=== PATIENT | female | born 1950 ===

== ENCOUNTER 2017-01-25 08:59 | Emergency (ER) | payer OTHER ==
[2017-01-25 09:07] VITALS: BMI 22.6
[2017-01-25 09:12] VITALS: O2SAT 98
[2017-01-25] MEDS ORDERED: Sodium Chloride 0.9% 1,000 ML IV STA (09:38)
--- NOTE | 2017-01-25 10:03 | ED PDOC ---
HPI: Abdomen Time Seen by Provider: 01/25/17 09:14 Chief Complaint (Nursing): Abdominal Pain Chief Complaint (Provider): abdominal pain History Per: Patient History/Exam Limitations: no limitations Onset/Duration Of Symptoms: Days (x 3) Additional Complaint(s): Myra Cervantes is a 67 year old female, with a previous medical history of diverticulitis, who presents to the ED with complaints of left lower quadrant pain ongoing for 3 days associated with urinary frequency. She denies any dysuria, fever, vomiting or diarrhea. Patient reports she is currently visiting from [place] where she is followed up by her doctors there. She denies taking any medications prior to arrival. PMD: none provided Past Medical History Reviewed: Historical Data, Nursing Documentation, Vital Signs Vital Signs: Last Vital Signs Temp 98.6 F 01/25/17 09:05 Pulse 75 01/25/17 10:02 Resp 17 01/25/17 10:02 BP 128/70 01/25/17 10:02 Pulse Ox 98 01/25/17 12:33 - Medical History PMH: Depression, Diverticulitis, Rheumatoid Arthritis - Surgical History Other surgeries: hysterectomy - Family History Family History: States: Unknown Family Hx - Home Medications Home Medications: Ambulatory Orders Medication Instructions Recorded Ciprofloxacin HCl [Cipro] 500 mg PO BID #14 tablet 01/25/17 Metronidazole [Flagyl] 500 mg PO BID #14 tablet 01/25/17 traMADol [Ultram] 50 mg PO TID PRN #15 tab 01/25/17 - Allergies Allergies/Adverse Reactions: Allergies Allergy/AdvReac Type Severity Reaction Status Date / Time No Known Allergies Allergy Verified 01/25/17 09:10 Review of Systems ROS Statement: Except As Marked, All Systems Reviewed And Found Negative Constitutional: Negative for: Fever Gastrointestinal: Positive for: Abdominal Pain (LLQ). Negative for: Nausea, Vomiting, Diarrhea Genitourinary Female: Positive for: Frequency. Negative for: Dysuria Physical Exam - Reviewed Nursing Documentation Reviewed: Yes Vital Signs Reviewed: Yes - Physical Exam Appears: Positive for: Well, Non-toxic, No Acute Distress Head Exam: Positive for: ATRAUMATIC, NORMAL INSPECTION, NORMOCEPHALIC Skin: Positive for: Normal Color, Warm, Dry Eye Exam: Positive for: EOMI, Normal appearance, PERRL ENT: Positive for: Normal ENT Inspection Neck: Positive for: Normal, Painless ROM Cardiovascular/Chest: Positive for: Regular Rate, Rhythm Respiratory: Positive for: CNT, Normal Breath Sounds Gastrointestinal/Abdominal: Positive for: Bowel Sounds, Soft, Tenderness (LLQ). Negative for: Guarding, Rebound Back: Positive for: Normal Inspection Extremity: Positive for: Normal ROM Neurologic/Psych: Positive for: Alert, Oriented - Laboratory Results Result Diagrams: 01/25/17 09:57 01/25/17 09:57 - ECG O2 Sat by Pulse Oximetry: 98 (RA) Pulse Ox Interpretation: Normal - Progress Re-evaluation Time: 13:15 Condition: Re-examined, Improved Medical Decision Making Medical Decision Making: Initial Impression: Abdominal pain with differentials including acute diverticulitis, cholecystitis, UTI and renal stone Initial Plan: * CT abd & pelvis w/IV contrast * labs * urine dipstick * blood culture * Morphine 4 mg IV * IV NS 1,000 ml at 1,000 ml/hr * reevaluation Time: 11:46 CT ABD/PELVIS FINDINGS: LOWER THORAX: Bilateral basilar atelectasis, cardiomegaly and a moderate hiatal hernia identified. LIVER: Diffuse fatty infiltration liver is identified without focal hepatic mass evident. GALLBLADDER AND BILE DUCTS: Gallbladder distention appreciate which is otherwise unremarkable. PANCREAS: Unremarkable. No gross lesion or ductal dilatation. SPLEEN: Unremarkable. ADRENALS: Unremarkable. No mass. KIDNEYS AND URETERS: Bilateral extrarenal pelves are identified. No obstructive uropathy bilaterally or discrete cystic or solid renal parenchymal mass noted bilaterally. VASCULATURE: Unremarkable. No aortic aneurysm. BOWEL: Unremarkable. No obstruction. Extensive sigmoid diverticular change are identified with local pericolic reaction noted proximally, in a pattern that suggests diverticulitis. Clinically correlate nevertheless as others inflow inflammatory or infectious processes or possible or even neoplasm. No abscess or definite free intrarenal gas. APPENDIX: Appendix appears upper limits normal size at 6 mm with limited gas the lumen but no periappendiceal reaction or fluid collection related. Appendicitis not felt to be present. Clinically correlate nevertheless. PERITONEUM: Perineum appears unremarkable exclusive of proximal sigmoid pericolic reaction. LYMPH NODES: Unremarkable. No enlarged lymph nodes. BLADDER: Unremarkable. REPRODUCTIVE: Prior hysterectomy suggested. BONES: No acute fracture. OTHER FINDINGS: None. IMPRESSION: 1. Findings most compatible with diverticulitis of the proximal sigmoid colon though other etiologies are as described above in a brief differential diagnosis. Clinically correlate further. No abscess or free air. 2. Distended but otherwise unremarkable appearing gallbladder. 3. Prominent bilateral extrarenal pelves. 4. Upper limits normal size appendix though no definite appendicitis pattern is felt to present this time. Clinically correlate. ~ Scribe Attestation: Documented by Theresa Bettencourt, acting as a scribe for Brando Lyn MD Provider Scribe Attestation: All medical record entries made by the Scribe were at my direction and personally dictated by me. I have reviewed the chart and agree that the record accurately reflects my personal performance of the history, physical exam, medical decision making, and the department course for this patient. I have also personally directed, reviewed, and agree with the discharge instructions and disposition. Disposition - Clinical Impression Clinical Impression: Acute diverticulitis - Patient ED Disposition Is Patient to be Admitted: No Doctor Will See Patient In The: Office Counseled Patient/Family Regarding: Studies Performed, Diagnosis, Need For Followup - Disposition [facility] Disposition: Routine/Home Disposition Time: 13:15 Condition: GOOD Additional Instructions: Take your medications as instructed. Follow up with your PCP in 2-3 days. Return for worsening. Prescriptions: Ciprofloxacin HCl [Cipro] 500 mg PO BID #14 tablet Metronidazole [Flagyl] 500 mg PO BID #14 tablet traMADol [Ultram] 50 mg PO TID PRN #15 tab PRN Reason: Pain, Severe (8-10) Instructions: Diverticulitis Diet (ED), Diverticulitis (ED) Print Language: NEPALESE
[2017-01-25 10:06] LABS: BASO % 0.4 % (0.0-2.0); EOS % 0.1 % (0.0-4.0); HEMATOCRIT 43.3 % (34.0-47.0); LYMPH # 0.8 K/uL (1.0-4.3); MEAN CELL VOLUME 92.8 fl (81.0-99.0); MEAN CORPUSCULAR HEMOGLOBIN 31.2 pg (27.0-31.0); MEAN CORPUSCULAR HGB CONC 33.6 g/dL (33.0-37.0); MONO # 0.7 K/uL (0.0-0.8); MONO % 9.4 % (0.0-10.0); NEUT # 5.8 K/uL (1.8-7.0); NEUT % 79.1 % (50.0-75.0); NRBC % 0.1 % (0.0-0.0); RED CELL DISTRIBUTION WIDTH 12.8 % (11.5-14.5); WHITE BLOOD COUNT 7.4 K/uL (4.8-10.8)
[2017-01-25 10:17] LABS: ALB/GLOB RATIO 1.5 (1.0-2.1); ALKALINE PHOSPHATASE 72 U/L (38-126); ALT/SGPT 31 U/L (9-52); AST/SGOT 29 U/L (14-36); BILIRUBIN,TOTAL 0.8 mg/dl (0.2-1.3); BLOOD UREA NITROGEN 8 mg/dl (7-17); CALCIUM 9.4 mg/dL (8.4-10.2); CARBON DIOXIDE 28 mmol/L (22-30); CHLORIDE 100 mmol/L (98-107); GFR AFRICAN-AMERICAN > 60; GLUCOSE,RANDOM 100 mg/dL (65-105); POTASSIUM 3.9 MMOL/L (3.6-5.0); SODIUM 142 mmol/l (132-148); TOTAL PROTEIN 6.7 G/DL (6.3-8.2)
[2017-01-25] MEDS ORDERED: Iohexol 300 100 ML IJ ONE (10:30)
[2017-01-25] MEDS ORDERED: Sodium Chloride 0.9% 50 ML IV ONE (10:31)
--- NOTE | 2017-01-25 11:47 | CT ---
PROCEDURE: CT Abdomen and Pelvis with contrast HISTORY: LLQ pain COMPARISON: None. TECHNIQUE: Contrast dose: Omnipaque 300, 100 cc. Radiation dose: Total exam DLP = 406.74 mGy-cm. This CT exam was performed using one or more of the following dose reduction techniques: Automated exposure control, adjustment of the mA and/or kV according to patient size, and/or use of iterative reconstruction technique. FINDINGS: LOWER THORAX: Bilateral basilar atelectasis, cardiomegaly and a moderate hiatal hernia identified. LIVER: Diffuse fatty infiltration liver is identified without focal hepatic mass evident. GALLBLADDER AND BILE DUCTS: Gallbladder distention appreciate which is otherwise unremarkable. PANCREAS: Unremarkable. No gross lesion or ductal dilatation. SPLEEN: Unremarkable. ADRENALS: Unremarkable. No mass. KIDNEYS AND URETERS: Bilateral extrarenal pelves are identified. No obstructive uropathy bilaterally or discrete cystic or solid renal parenchymal mass noted bilaterally. VASCULATURE: Unremarkable. No aortic aneurysm. BOWEL: Unremarkable. No obstruction. Extensive sigmoid diverticular change are identified with local pericolic reaction noted proximally, in a pattern that suggests diverticulitis. Clinically correlate nevertheless as others inflow inflammatory or infectious processes or possible or even neoplasm. No abscess or definite free intrarenal gas. APPENDIX: Appendix appears upper limits normal size at 6 mm with limited gas the lumen but no periappendiceal reaction or fluid collection related. Appendicitis not felt to be present. Clinically correlate nevertheless. PERITONEUM: Perineum appears unremarkable exclusive of proximal sigmoid pericolic reaction. LYMPH NODES: Unremarkable. No enlarged lymph nodes. BLADDER: Unremarkable. REPRODUCTIVE: Prior hysterectomy suggested. BONES: No acute fracture. OTHER FINDINGS: None. IMPRESSION: 1. Findings most compatible with diverticulitis of the proximal sigmoid colon though other etiologies are as described above in a brief differential diagnosis. Clinically correlate further. No abscess or free air. 2. Distended but otherwise unremarkable appearing gallbladder. 3. Prominent bilateral extrarenal pelves. 4. Upper limits normal size appendix though no definite appendicitis pattern is felt to present this time. Clinically correlate.
[2017-01-25 13:29] VITALS: BP 143/78; PULSE 73; RESP 16; TEMP 99
== END 2017-01-25 13:28 | disposition home or self-care (01) ==
LOC: H.ER 08:59
DX: K57.92 Diverticulitis of intestine, part unspecified, without perforation or abscess without bleeding (principal); M06.9 Rheumatoid arthritis, unspecified; F32.9 Major depressive disorder, single episode, unspecified
CPT/HCPCS: 74177; 80053; 85025; 87040; 96361; 96374; 99284; J2270; J7040; Q9967